=== PATIENT | female | born 1960 | race Caucasian/White ===

== ENCOUNTER → 2018-04-12 | Outpatient (CLI) | payer OTHER ==
[~2018-04-12] MED LIST: CETI5; OXYACE7.5T PO; PANT20; PROP10; RXOXYACE PO
== END ==
LOC: LAB SHORT 18:35 → LAB 18:35
DX: N89.8 Other specified noninflammatory disorders of vagina (principal)
CPT/HCPCS: 87070; 87205

== ENCOUNTER → 2018-05-13 | Outpatient (CLI) | payer OTHER | LOC: LAB SHORT 08:29 → PLD 08:29 | DX: N95.0 Postmenopausal bleeding (principal) | CPT/HCPCS: 88305 ==

== ENCOUNTER 2019-03-07 09:15 | Day surgery (SDC) | payer OTHER ==
[~2019-03-07] VITALS: Ht 157.5 cm; Wt 98.4 kg
[~2019-03-07 09:15] MED LIST changes: +ALLO300 PO; +ARIP10 PO; +DESV50 PO; +ESTRIOL VAG; +FENOFIBRATE145 MG PO; +OMEPRAZOLE20 MG PO; +PROM25 PO; +RIZATRIPTAN5 M1 PO; +THERA1 EACH PO; +TOPI50 PO; +TRAZ100 PO; +VITAMIN C500 MG PO; +ZYRTEC10 M1 PO; +Zofran4 MG PO
--- NOTE | 2019-03-07 10:29 | NUR ---
History, Chart, Medications and Allergies reviewed before start of procedure. Pre-Op teaching done. Pt verbalizes understanding. Patient confirms NPO status and agrees with scheduled surgery. Patient States Post-Procedure ride home has been arranged with Sunil. Lungs clear T/O to Auscultation. Patient reports completing Chlorhexadine shower X2 prior to admission to hospital. Surgical site prepped with 2% Chlorhexidine cloth wipe. Patient has earrings that are not able to be removed, but are covered with tape.
--- NOTE | 2019-03-07 10:35 | NUR ---
NOTIFIED DR ORTEGA OF PATIENT'S CODEINE ALLERGY, OK TO PROCEED, NO NEW ORDERS.
--- NOTE | 2019-03-07 11:59 | NUR ---
REPORT GIVEN TO MIRIAM PERERA RN. PT RESTING QUIETLY. NO COMPLAINTS. AFEBRILE/VSS. WAITING FOR XRAY.
--- NOTE | 2019-03-07 12:30 | NUR ---
PT TO STEP. DRESSSING D/I. DENIES C/O PAIN OR NAUSEA.
--- NOTE | 2019-03-07 13:04 | NUR ---
WRITTEN AND VERBAL D/C INSTRUCTIONS GIVEN TO PT WITH STATED UNDERSTANDING. C/O APIN 05/09. PAIN MEDS GIVEN. NO CHANGE IN DRESSING. TOLERATING PO.
--- NOTE | 2019-03-08 13:40 | NUR ---
03/08/19 1340 Janay Martinez VERIFICATIONS: EDIT CHART.
== END 2019-03-07 13:20 | disposition home or self-care (01) ==
LOC: ORSCMMR 09:15 → ORD 11:00 → ORSCMMR 13:20
PROVIDERS: Surgery
PROC: B5181ZA Fluoroscopy of Superior Vena Cava using Low Osmolar Contrast, Guidance (ICD-10-PCS; principal; 2019-03-07 11:00)
PROC: 02HV33Z Insertion of Infusion Device into Superior Vena Cava, Percutaneous Approach (ICD-10-PCS; principal; 2019-03-07 11:00)
DX: C82.14 Follicular lymphoma grade II, lymph nodes of axilla and upper limb (principal); K21.9 Gastro-esophageal reflux disease without esophagitis; E78.00 Pure hypercholesterolemia, unspecified; E66.01 Morbid (severe) obesity due to excess calories; Z68.39 Body mass index [BMI] 39.0-39.9, adult; Z79.899 Other long term (current) drug therapy
CPT/HCPCS: 77001; C1788; J0690; J1642; J2250; J2704; J3010; J7120

== ENCOUNTER → 2019-08-16 | Outpatient (CLI) | payer OTHER | LOC: LAB SHORT 12:00 → LAB 12:00 | DX: N95.2 Postmenopausal atrophic vaginitis (principal) | CPT/HCPCS: 83036; 87070; 87205 ==

== ENCOUNTER → 2019-08-19 | Outpatient (CLI) | payer OTHER ==
[2019-08-19 13:40] LABS: BASOPHILS ABSOLUTE AUTO 0.04 K/mm3 (0.00-0.23); BASOPHILS PERCENT AUTO 2 % (0-2); EOSINOPHILS PERCENT AUTO 4 % (0-6); Hematocrit 37.2 % (33.0-51.0); Hemoglobin 12.4 g/dL (11.5-16.0); IMMATURE GRAN ABSOLUTE AUTO 0.01 K/mm3 (0.00-0.10); IMMATURE GRAN PERCENT AUTO 0 % (0-1); LYMPHOCYTES PERCENT AUTO 4 % (21-46); MONOCYTES ABSOLUTE AUTO 0.39 K/mm3 (0.16-1.47); MONOCYTES PERCENT AUTO 15 % (4-13); Mean Corpuscular HGB 29.8 pg (26.0-34.0); Mean Corpuscular HGB Conc 33.3 g/dL (31.5-36.5); Mean Corpuscular Volume 89 fL (80-100); NEUTROPHILS ABSOLUTE AUTO 2.03 K/mm3 (1.96-9.15); NEUTROPHILS PERCENT AUTO 76 % (41-73); Platelet Count 210 K/mm3 (150-400); RDW Coefficient Variation 14.3 % (11.7-14.2); RDW Standard Deviation 46.1 fL (35.1-46.3); Red Blood Cell Count 4.16 M/mm3 (3.80-5.20); White Blood Cell Count 2.67 K/mm3 (4.00-11.30)
[2019-08-19 13:55] LABS: Alanine Aminotransfer (ALT/SGP 37 U/L (12-78); Albumin, Blood 3.7 g/dL (3.4-5.0); Albumin/Globulin Ratio 1.4 (0.8-1.8); Alk Phos 80 U/L (50-136); Anion Gap 7 mmol/L (6-16); Aspartate Aminotrans (AST/SGOT 17 U/L (12-37); Bilirubin, Total 0.2 mg/dL (0.1-1.0); Blood Urea Nitrogen 16 mg/dL (8-24); Bun/Creatinine Ratio 18.6 (12.0-20.0); CO2, Blood 22 mmol/L (21-32); Calcium, Blood 8.8 mg/dL (8.5-10.1); Chloride, Blood 112 mmol/L (98-108); Creatinine, Blood 0.86 mg/dL (0.40-1.00); Globulin, Blood 2.6 g/dL (2.2-4.0); Glomerular Filtration Rate >60 (60-); Glucose, Blood 155 mg/dL (70-99); Lactate Dehydrogenase (Ld),Bld 224 U/L (100-240); Potassium, Blood 3.7 mmol/L (3.5-5.5); Sodium, Blood 141 mmol/L (136-145); Total Protein, Blood 6.3 g/dL (6.4-8.2)
== END | disposition home or self-care (01) ==
LOC: LAB SHORT 12:59 → LAB 12:59
PROVIDERS: Internal Medicine Hematology & Oncology
DX: C82.14 Follicular lymphoma grade II, lymph nodes of axilla and upper limb (principal)
CPT/HCPCS: 80053; 83615; 85025

== ENCOUNTER → 2019-10-21 | Outpatient (CLI) | payer OTHER | LOC: LAB SHORT 18:59 → LAB 18:59 | DX: R10.2 Pelvic and perineal pain (principal) | CPT/HCPCS: 87070; 87205 ==

== ENCOUNTER → 2019-11-02 | Outpatient (CLI) | payer OTHER | LOC: LAB SHORT 10:45 → LAB UCHC 10:45 | DX: N89.8 Other specified noninflammatory disorders of vagina (principal) | CPT/HCPCS: 87070; 87205 ==

== ENCOUNTER 2020-06-20 10:56 | Day surgery (SDC) | payer OTHER ==
[~2020-06-20] VITALS: Ht 157.5 cm; Wt 102.3 kg
[~2020-06-20 10:56] MED LIST changes: +CLON.5 PO; +FAMO20 PO; +Inderal 20 mg T20 MG PO; +OMEP20ER PO; +PROBIOTIC1 EA13 PO; +ROPI1 PO; +Ropinirole HCl0.5 MG PO
[2020-06-20] MEDS ORDERED: SUMA25 PO (11:45)
== END 2020-06-20 12:30 | disposition home or self-care (01) ==
LOC: ORSCSDS 10:56
PROVIDERS: Internal Medicine Gastroenterology
PROC: 0DB68ZX Excision of Stomach, Via Natural or Artificial Opening Endoscopic, Diagnostic (ICD-10-PCS; principal; 2020-06-20 12:30)
DX: K21.9 Gastro-esophageal reflux disease without esophagitis (principal); G47.30 Sleep apnea, unspecified; F32.9 Major depressive disorder, single episode, unspecified; K20.80 Other esophagitis without bleeding; E66.01 Morbid (severe) obesity due to excess calories; Z68.41 Body mass index [BMI] 40.0-44.9, adult; Z79.899 Other long term (current) drug therapy
CPT/HCPCS: 88305; 88342; J2704; J7120

== ENCOUNTER → 2020-09-18 | Outpatient (CLI) | payer OTHER | LOC: LAB 15:30 | DX: N95.2 Postmenopausal atrophic vaginitis (principal); Z88.5 Allergy status to narcotic agent ==

== ENCOUNTER → 2021-05-02 | Outpatient (CLI) | payer OTHER ==
[~2021-05-02] MED LIST changes: +SUMA25 PO
== END | disposition home or self-care (01) ==
LOC: LAB 18:49 → LAB SHORT 18:49
DX: J02.9 Acute pharyngitis, unspecified (principal)
CPT/HCPCS: 87081

== ENCOUNTER → 2023-02-10 | Outpatient (CLI) | payer OTHER ==
[2023-02-20 03:42] LABS: HPV GENOTYPE 16 Not Detected; HPV GENOTYPE 18 Not Detected; HPV HIGH RISK Not Detected; HPV SOURCE Cervical
== END ==
LOC: LAB SHORT 16:56 → LAB 16:56
PROVIDERS: Family Medicine
DX: Z01.419 Encounter for gynecological examination (general) (routine) without abnormal findings (principal)
CPT/HCPCS: 87624; G0123

== ENCOUNTER 2023-04-27 07:27 | Day surgery (SDC) | payer OTHER ==
[~2023-04-27] VITALS: Ht 157.5 cm; Wt 90.1 kg
[~2023-04-27 07:27] MED LIST changes: +Lidocaine HCl/Pf 1% 5 ML VIAL ONE; +Ropivacaine 0.5% HCl/Pf 5 MG/ML 20ML VIAL ONE
[2023-04-27] MEDS ORDERED: OYSTER SHELL 51 EAC2 PO (08:12)
[2023-04-27] MEDS ORDERED: EFFEXOR XR150 MG PO (08:13)
[2023-04-27] MEDS ORDERED: LOSARTAN POTASS25 M2 PO (08:13)
[2023-04-27] MEDS ORDERED: NARA2.5 (08:14)
[2023-04-27] MEDS ORDERED: MAGCIT300 PO (08:14)
[2023-04-27] MEDS ORDERED: QULIPTA60 MG PO (08:14)
[2023-04-27] MEDS ORDERED: HYDPAM25 PO (08:15)
[2023-04-27] MEDS ORDERED: Lactated Ringer's 1,000 ML IV ONE ×2 (08:23→08:27)
[2023-04-27] MEDS ORDERED: CeFAZolin Sodium 2,000 MG VIAL ONE (08:27)
[2023-04-27] MEDS ORDERED: NS 50 ML IV ONE (08:27)
[2023-04-27] MEDS ORDERED: FentaNYL Citrate 50 MCG/ML 2 ML Injection ONE (08:39)
[2023-04-27] MEDS ORDERED: Midazolam HCl 1MG / ML 2ML Vial ONE (08:39)
[2023-04-27] MEDS ORDERED: propofoL 20 ML IV ONE (08:39)
[2023-04-27] MEDS ORDERED: Ondansetron HCl 2 MG / ML 2ML Vial ONE (08:40)
[2023-04-27] MEDS ORDERED: Dexamethasone Sod Phos 10 MG/ML 1ML VIAL ONE (08:40)
[2023-04-27 10:12] VITALS: BP 160/87
[2023-04-27] MEDS ORDERED: Ibuprofen 600 MG Tab ONE (10:39)
--- NOTE | 2023-04-27 14:22 | NUR ---
04/27/23 1422 Miguel Schmid PT ADVISED TO FOLLOW UP WITH PCP REGARDING SLEEP APNEA.
== END 2023-04-27 11:10 | disposition home or self-care (01) ==
LOC: ORSCSDS 07:27 → ORD 05-15 11:30
PROVIDERS: Podiatrist
PROC: 0QBN0ZZ Excision of Right Metatarsal, Open Approach (ICD-10-PCS; principal; 2023-04-27 08:45)
DX: M20.11 Hallux valgus (acquired), right foot (principal); M79.671 Pain in right foot; I10 Essential (primary) hypertension; K21.9 Gastro-esophageal reflux disease without esophagitis; E66.9 Obesity, unspecified; Z68.36 Body mass index [BMI] 36.0-36.9, adult; Z79.899 Other long term (current) drug therapy
CPT/HCPCS: A9270; C1713; J0690; J1100; J2001; J2250; J2405; J2704; J2795; J3010; J7120